=== PATIENT | female | born 1990 | race Caucasian/White ===

== ENCOUNTER 2020-10-07 12:09 | Emergency (ER) | payer OTHER ==
[~2020-10-07] VITALS: Ht 162.6 cm; Wt 54.4 kg
[~2020-10-07 12:09] MED LIST: CALC-105 PO; FERR325E14 PO; FOLI5CAP PO; PREN-385 PO
[2020-10-07 12:11] VITALS: BP 136/78
[2020-10-07 12:13] VITALS: BP 123/74
[2020-10-07] MEDS ORDERED: predniSONE 20 MG TAB PO ONE (12:50)
[2020-10-07] MEDS ORDERED: FAMO-90 PO (13:10)
[2020-10-07] MEDS ORDERED: PRED20TA5 PO (13:10)
[2020-10-07] MEDS ORDERED: DIPH25TA53 PO (13:10)
[2020-10-07 13:19] VITALS: BP 123/74
== END 2020-10-07 13:19 | disposition home or self-care (01) ==
LOC: MED 12:09
DX: T78.49XA Other allergy, initial encounter (principal); R22.0 Localized swelling, mass and lump, head; Y92.89 Other specified places as the place of occurrence of the external cause
CPT/HCPCS: 99283; J7512

== ENCOUNTER 2023-09-03 13:43 | Emergency (ER) | payer MEDICAID, OTHER ==
[~2023-09-03] VITALS: Ht 160 cm; Wt 72.3 kg
[~2023-09-03 13:43] MED LIST changes: +DIPH25TA53 PO; +FAMO-90 PO; +PRED20TA5 PO
[2023-09-03 14:11] VITALS: BP 139/95; PULSE 99; RESP 17; TEMP 98.2; O2SAT 99
== END 2023-09-03 14:36 | disposition left against medical advice (07) ==
LOC: MED 13:43
DX: F41.9 Anxiety disorder, unspecified (principal); Z76.0 Encounter for issue of repeat prescription; Z53.21 Procedure and treatment not carried out due to patient leaving prior to being seen by health care provider